=== PATIENT | male | born 1985 | race Caucasian/White ===

== ENCOUNTER 2016-10-06 09:01 | Outpatient (CLI) | payer BC ==
[2016-10-06 12:56] LABS: BASOPHILS % (AUTO) 0.6 %; EOSINOPHILS # (AUTO) 0.2 10^3/uL (0.0-0.7); EOSINOPHILS % (AUTO) 3.2 %; HGB - HEMOGLOBIN 15.8 g/dL (14.0-18.0); LYMPHOCYTES % (AUTO) 22.1 %; MEAN CORPUSCULAR HEMOGLOBIN 27.9 pg (27.0-31.0); MEAN CORPUSCULAR HGB CONC 33.5 g/dL (32.0-36.0); MEAN CORPUSCULAR VOLUME 83.1 fL (80.0-94.0); MEAN PLATELET VOLUME 8.7 fL (7.4-11.4); MONOCYTES # (AUTO) 0.3 10^3/uL (0.0-1.0); NEUTROPHILS # (AUTO) 3.2 10^3/uL (1.5-6.6); NEUTROPHILS % (AUTO) 68.1 %; NUCLEATED RED BLOOD CELLS AUTO 0.2 /100WBC; RED BLOOD COUNT 5.65 10^6/uL (4.70-6.10); RED CELL DISTRIBUTION WIDTH 13.3 % (12.0-15.0); UNCORRECTED WHITE BLOOD COUNT 4.7 x10^3/uL; WHITE BLOOD COUNT 4.7 x10^3/uL (4.8-10.8)
[2016-10-06 13:42] LABS: ALBUMIN/GLOBULIN RATIO 1.6 (1.0-2.2); BILIRUBIN,TOTAL 1.1 mg/dL (0.2-1.0); BUN - BLOOD UREA NITROGEN 17 mg/dL (6-20); CALCIUM 9.1 mg/dL (8.5-10.3); CARBON DIOXIDE - CO2 28 mmol/L (21-32); CHLORIDE 101 mmol/L (101-111); CHOL/HDL RATIO 7.7 (<5.0); CHOLESTEROL 254 mg/dL; CREATININE 0.8 mg/dL (0.6-1.2); GFR - MDRD 112 (>89); GLUCOSE 146 mg/dL (70-100); HDL CHOLESTEROL 33 mg/dL; LDL/HDL RATIO 4.8 (<3.6); POTASSIUM 4.4 mmol/L (3.5-5.0); SODIUM 136 mmol/L (135-145); TOTAL PROTEIN 7.1 g/dL (6.7-8.2); TRIGLYCERIDES 319 mg/dL; VLDL CHOLESTEROL 64 mg/dL
== END 2016-10-06 09:02 | disposition home or self-care (01) ==
LOC: LAB.WCP 09:01
PROVIDERS: ATTEND Physician Assistant Medical
DX: Z00.00 Encounter for general adult medical examination without abnormal findings (principal)
CPT/HCPCS: 36415; 80053; 80061; 84443; 85025

== ENCOUNTER 2017-03-17 17:43 | Emergency (ER) | payer OTHER, BC ==
[2017-03-17 17:50] VITALS: BP 138/86
[2017-03-17] MEDS ORDERED: LIDOCAINE 2% 10 ML MDV SUBQ STA (17:58)
--- NOTE | 2017-03-17 18:17 | ED Physician Documentation ---
PD HPI UPPER EXT INJURY - Stated complaint Stated Complaint: LT FINGER LAC - Chief complaint Chief Complaint: Laceration - History obtained from History obtained from: Patient - History of Present Illness Location: Left, Finger (index) Type of injury: Laceration Where injury occurred: Work ([employer]) Timing - onset: How many hours ago (1) Timing - duration: Hours (1) Timing - details: Abrupt onset Pain level max: 5 Pain level now: 2 Improved by: Rest Worsened by: Moving, Palpating Associated symptoms: No: Weakness, Numbness, Tingling, Swelling Contributing factors: No: Anticoagulated Similar symptoms before: Has not had sx before Recently seen: Not recently seen - Additonal information Additional information: L index finger laceration at work Review of Systems Neurologic: denies: Focal weakness, Numbness PD PAST MEDICAL HISTORY - Past Medical History Past Medical History: No - Past Surgical History Past Surgical History: No - Social History Does the pt smoke?: No Smoking Status: Never smoker Does the pt drink ETOH?: No Does the pt have substance abuse?: No - Immunizations Immunizations are current?: Yes - POLST Patient has POLST: No PD ED PE NORMAL - Vitals Vital signs reviewed: Yes - General General: Alert and oriented X 3, No acute distress - Derm Derm: Warm and dry - Extremities Extremities: Other (L index finger - 2 cm, linear, subcutaneous laceration. NVI. ) Results - Vitals Vitals: Vital Signs - 24 hr 03/17/17 17:48 Temperature 37.7 C H Heart Rate 77 Respiratory 17 Rate Blood Pressure 138/86 H O2 Saturation 97 Oxygen O2 Source Room air Procedures - Laceration (location) L index finger Length in cm: 2 Wound type: Linear, Into subcut fat, Clean Neurovascular status: Sensory intact, Motor intact, Vascular intact Tendon involvement: Tendon intact. No: Tendon Injury Anesthesia: Lidocaine 2% Wound Preparation: Chlorhexadine, Irrigated copiously NS (500ml) Skin layer closure: Nylon, Size #-0 - enter number (4), Sutures - enter # (4) Other: Patient tolerated well, No complications, Neurovascular intact, Dressing applied (finger splint), Tetanus UTD Complexity: Simple PD MEDICAL DECISION MAKING - ED course Complexity details: considered differential, d/w patient ED course: Laceration repaired. Tolerated well. Neurovascularly intact. No tendon injury. No foreign body. Warnings of infection and instructions on wound care given at bedside. Also counseled on how to minimize scarring. Patient counseled regarding signs and symptoms for which I believe and urgent re- evaluation would be necessary. Patient with good understanding of and agreement to plan and is comfortable going home at this time This document was made in part using voice recognition software. While efforts are made to proofread this document, sound alike and grammatical errors may occur. Departure - Departure Disposition: 01 Home, Self Care Clinical Impression: Finger laceration Qualifiers: Encounter type: initial encounter Finger: index finger Damage to nail status: without damage Foreign body presence: without foreign body Laterality: left Qualified Code(s): S61.211A - Laceration without foreign body of left index finger without damage to nail, initial encounter Condition: Good Instructions: ED Laceration Hand Follow-Up: Irene Brown PA-C [Primary Care Provider] - (in 10-14 days for suture removal) Comments: Wear the finger splint for the next 2-3 days. The sutures should be removed in 10-14 days with your doctor. Keep the area clean. Return if you notice redness swelling or drainage from the wound. Discharge Date/Time: 03/17/17 18:58
== END 2017-03-17 18:58 | disposition home or self-care (01) ==
LOC: ED 17:43
DX: S61.211A Laceration without foreign body of left index finger without damage to nail, initial encounter (principal); W26.0XXA Contact with knife, initial encounter; Y99.0 Civilian activity done for income or pay
CPT/HCPCS: 12001; 99282; 99283

== ENCOUNTER 2017-04-26 14:44 | Outpatient (CLI) | payer BC ==
--- NOTE | 2017-04-27 22:07 | MRI Report ---
EXAM: MRI LUMBAR SPINE WITHOUT CONTRAST EXAM DATE: 04/26/2017 03:25 PM. CLINICAL HISTORY: Lumbar disk disorder. COMPARISON: MRI of the lumbar spine without contrast 11/17/2008, MRI lumbar spine with contrast 11/25. TECHNIQUE: Multiplanar, multisequence T1-weighted and fluid-sensitive sequences of the lumbar spine f rom T12 to S1 without contrast. Other: None. FINDINGS: Spinal Cord: The conus terminates at L1-L2. The conus medullaris and cauda equina are unremarkable. Alignment: There is a normal lumbar spine lordosis. There is minimal, 2 mm, retrolisthesis of L3 on L 4. 5-6 mm retrolisthesis of L5 on S1. Bone Marrow: Five [id number] lumbar vertebral bodies are assumed. No gross fractures or bone les ions. No bone marrow edema. Disk Levels/Facets: T12-L1: Unremarkable. L1-L2: Unremarkable. L2-L3: Unremarkable. L3-L4: Retrolisthesis. Disk desiccation. No significant canal or foraminal narrowing. Previously seen right inferior subarticular extrusion no longer demonstrated. L4-L5: Posterior central 2 mm protrusion without significant canal or foraminal narrowing. No signifi cant change. L5-S1: Retrolisthesis. Progressive moderate disk height loss. No significant canal or subarticular na rrowing. No significant foraminal narrowing. Musculature: Normal. No edema or fatty atrophy. Other: The partially visualized retroperitoneum is unremarkable. IMPRESSION: 1. At L5-S1, stable retrolisthesis. Progressive moderate disk height loss. No significant spinal riley l or foraminal narrowing. No focal protrusion or extrusion. 2. At L4-L5, central 2 mm protrusion without significant canal or foraminal narrowing. No significant change. 3. At L3-L4, stable retrolisthesis. No significant canal or foraminal narrowing. Previously demonstra allison right inferior subarticular disk extrusion no longer demonstrated. Comment: The following findings are so common in adults without low back pain that while we report th eir presence, they must be interpreted with caution and in the context of the clinical situation. (Re thomas Harper et al, Spine 2001) Prevalence of findings in patients without low back pain: Disk degeneration (any evidence): 92% Disk desiccation/T2 signal loss: 83% Disk height loss: 56% Disk bulge: 64% Disk protrusion: 32% Annular tear/high intensity zone: 38% [facility] Referring Provider Line: [phone] SITE ID: [id number]
== END 2017-04-26 14:45 | disposition home or self-care (01) ==
LOC: DI 14:44
PROVIDERS: ATTEND Physician Assistant Medical
DX: M51.26 Other intervertebral disc displacement, lumbar region (principal); M51.36 Other intervertebral disc degeneration, lumbar region; M43.16 Spondylolisthesis, lumbar region; M43.17 Spondylolisthesis, lumbosacral region; M51.37 Other intervertebral disc degeneration, lumbosacral region
CPT/HCPCS: 72148

== ENCOUNTER 2017-07-31 08:00 | Outpatient (CLI) | payer BC ==
[2017-07-31 19:06] LABS: BASOPHILS % (AUTO) 0.6 %; EOSINOPHILS # (AUTO) 0.1 10^3/uL (0.0-0.7); EOSINOPHILS % (AUTO) 2.2 %; LYMPHOCYTES # (AUTO) 0.8 10^3/uL (1.5-3.5); LYMPHOCYTES % (AUTO) 12.2 %; MEAN CORPUSCULAR HEMOGLOBIN 28.5 pg (27.0-31.0); MEAN CORPUSCULAR HGB CONC 35.3 g/dL (32.0-36.0); MEAN CORPUSCULAR VOLUME 80.7 fL (80.0-94.0); MEAN PLATELET VOLUME 9.8 fL (7.4-11.4); MONOCYTES # (AUTO) 0.4 10^3/uL (0.0-1.0); MONOCYTES % (AUTO) 6.7 %; NEUTROPHILS # (AUTO) 5.1 10^3/uL (1.5-6.6); NEUTROPHILS % (AUTO) 78.3 %; RED BLOOD COUNT 5.27 10^6/uL (4.70-6.10); WHITE BLOOD COUNT 6.6 x10^3/uL (4.8-10.8)
[2017-07-31 19:49] LABS: ALBUMIN 4.4 g/dL (3.2-5.5); ALBUMIN/GLOBULIN RATIO 1.7 (1.0-2.2); BILIRUBIN,TOTAL 0.5 mg/dL (0.2-1.0); CALCIUM 8.9 mg/dL (8.5-10.3); CREATININE 0.9 mg/dL (0.6-1.2)
[2017-07-31 20:13] LABS: PLATELET ESTIMATE, MANUAL DECREASED (<130,000) (NORMAL); PLT - PLATELET COUNT 3 10^3/uL (130-450)
[2017-08-02 14:11] LABS: COMPLEMENT COMPONENT C3C 151 mg/dL (82-185); COMPLEMENT COMPONENT C4C 35 mg/dL (15-53)
[2017-08-02 14:13] LABS: ANA SCREEN NEGATIVE (NEGATIVE)
[2017-08-03 07:02] LABS: GLOM BASEMENT MEMBRANE AB IGG <1.0 AI (<1.0)
[2017-08-03 15:57] LABS: ANCA SCREEN NEGATIVE (NEGATIVE)
[2017-08-05 07:57] LABS: ANTI-STREPTOLYSIN O <50 IU/mL (<200)
== END 2017-07-31 08:01 | disposition home or self-care (01) ==
LOC: LAB.WCP 08:00
PROVIDERS: ATTEND Family Medicine
DX: R31.9 Hematuria, unspecified (principal); I77.6 Arteritis, unspecified
CPT/HCPCS: 36415; 80053; 83520; 85025; 86021; 86038; 86060; 86160

== ENCOUNTER 2017-07-31 20:57 | Inpatient (IN) | payer BC ==
--- NOTE | 2017-07-31 21:20 | ED Physician Documentation ---
History of Present Illness - Stated complaint Stated Complaint: MALE /BK PX - Chief complaint Chief Complaint: General - History obtained from History obtained from: Patient - Additonal information Additional information: 32-year-old gentleman with benign past medical history went to the dentist 3 days ago because his gums were bleeding. They bled worse during the cleaning and he was put on an antibiotic, Keflex. The next day he was no better and was switched to Augmentin. They noted easy bleeding and bruising a lot of cheek he has so today was sent for blood work which was notable for a platelet count of 3000 and he was referred to the emergency department for further evaluation and treatment. He is also had hematuria grossly but no clots. Review of Systems Ten Systems: 10 systems reviewed and negative Constitutional: denies: Fever, Chills, Fatigue Nose: denies: Rhinorrhea / runny nose, Congestion Throat: denies: Sore throat Cardiac: denies: Chest pain / pressure, Palpitations Respiratory: denies: Dyspnea, Cough GI: denies: Abdominal Pain, Nausea, Vomiting : reports: Hematuria. denies: Dysuria, Frequency, Hesitancy PD PAST MEDICAL HISTORY - Past Surgical History Past Surgical History: No - Allergies Allergies/Adverse Reactions: Allergies Allergy/AdvReac Type Severity Reaction Status Date / Time cephalexin AdvReac Rash Verified 07/31/17 21:10 - Social History Does the pt smoke?: No Smoking Status: Never smoker Does the pt drink ETOH?: No Does the pt have substance abuse?: No - Immunizations Immunizations are current?: Yes - POLST Patient has POLST: No PD ED PE NORMAL - Vitals Vital signs reviewed: Yes - General General: Alert and oriented X 3, No acute distress - HEENT HEENT: PERRL, EOMI - Neck Neck: Supple, no meningeal sign, No bony TTP - Cardiac Cardiac: RRR, No murmur - Respiratory Respiratory: No respiratory distress, Clear bilaterally - Abdomen Abdomen: Normal bowel sounds, Soft, Non tender - Derm Derm: Other (He is with diffuse petechia throughout especially the lower extremities and multiple bruises, the left thigh, chest wall, right arm.) - Extremities Extremities: No edema, No calf tenderness / cord - Neuro Neuro: Alert and oriented X 3, Normal speech - Psych Psych: Normal mood, Normal affect Results - Vitals Vitals: Vital Signs - 24 hr 07/31/17 21:07 Temperature 36.4 C L Heart Rate 84 Respiratory 17 Rate Blood Pressure 150/90 H O2 Saturation 100 Oxygen O2 Source Room air - Labs Labs: Laboratory Tests 07/31/17 07/31/17 21:15 21:15 WBC 7.2 RBC 5.23 Hgb 15.4 Hct 42.1 MCV 80.6 MCH 29.4 MCHC 36.5 H RDW 13.1 Plt Count 7 L* MPV 9.0 Neut # (Auto) 5.3 Lymph # (Auto) 1.2 L [place] # (Auto) 0.5 Eos # (Auto) 0.2 Baso # (Auto) 0.1 Absolute Nucleated RBC 0.00 Nucleated RBC % 0.0 Urine Color RED/BLOODY Urine Clarity BLOODY Urine pH 5.0 Ur Specific [place] 1.025 Urine Protein 100 H Urine Glucose (UA) NEGATIVE Urine Ketones TRACE Urine Occult Blood LARGE H Urine Nitrite POSITIVE H Urine Bilirubin NEGATIVE Urine Urobilinogen 1 (NORMAL) Ur Leukocyte Esterase TRACE H Urine RBC TNTC H Urine WBC >25 H Ur Squamous Epith Cells NONE SEEN Urine Bacteria Few Urine Yeast PRESENT Ur Microscopic Review INDICATED Urine Culture Comments INDICATED PD MEDICAL DECISION MAKING - ED course ED course: He probably has ITP, [facility] was paged for consultation and likely transfer at 9:20 PM. [facility] was full, this was followed by a call to [facility]. They initially had me speak with the radiation oncologist but around 10:20 I was put in touch with their medical oncologist, Dr. Barksdale and we went over the case and he felt like he could probably stay here understanding that this [facility] a [facility] without easy access to platelets or IVIG. He felt the best treatment for him initially would be dexamethasone, 40 mg a day for the 4 days and we should call them back if he has not had an improved platelet count in about 3 days. I spoke with Dr. Baugh by phone for admission at 10:30 PM. Departure - Departure Disposition: 66 [facility] DC/[facility] Clinical Impression: Acute ITP Condition: Serious
[2017-07-31 21:30] LABS: BASOPHILS % (AUTO) 0.8 %; EOSINOPHILS % (AUTO) 2.3 %; HGB - HEMOGLOBIN 15.4 g/dL (14.0-18.0); LYMPHOCYTES % (AUTO) 16.3 %; MEAN CORPUSCULAR HEMOGLOBIN 29.4 pg (27.0-31.0); MEAN CORPUSCULAR HGB CONC 36.5 g/dL (32.0-36.0); MEAN CORPUSCULAR VOLUME 80.6 fL (80.0-94.0); MONOCYTES % (AUTO) 7.3 %; NEUTROPHILS % (AUTO) 73.3 %; RED BLOOD COUNT 5.23 10^6/uL (4.70-6.10); RED CELL DISTRIBUTION WIDTH 13.1 % (12.0-15.0)
[2017-07-31 21:33] LABS: BILIRUBIN,URINE NEGATIVE (NEGATIVE); GLUCOSE, URINE (UA) NEGATIVE (NEGATIVE); KETONES,URINE (UA) TRACE mg/dL (NEGATIVE); LEUKOCYTE ESTERASE, URINE TRACE (NEGATIVE); NITRITE,URINE POSITIVE (NEGATIVE); OCCULT BLOOD,URINE LARGE (NEGATIVE); PROTEIN,URINE 100 mg/dL (NEGATIVE); UROBILINOGEN,URINE 1 (NORMAL) E.U./dL (NORMAL)
[2017-07-31 21:35] LABS: CLARITY,URINE BLOODY (CLEAR)
[2017-07-31 21:39] LABS: PLT - PLATELET COUNT 7 10^3/uL (130-450)
[2017-07-31 21:45] LABS: BACTERIA,URINE Few /HPF (None Seen); RBC,URINE TNTC /HPF (0-5); SQUAMOUS EPITHELIAL CELL,UR NONE SEEN (<= Few); YEAST,URINE PRESENT
[2017-07-31] MEDS ORDERED: DEXAMETHASONE 10 MG/ML VIAL IVP STA (22:29)
--- NOTE | 2017-07-31 22:35 | HISTORY & PHYSICAL EXAMINATION ---
Chief Complaint - Chief Complaint Chief Complaint: Blood in urine History of Present Illness - Admitted From Admitted From:: Emergency Department - History Obtained From Records Reviewed: Yes History obtained from: Patient Exam Limitations: None - History of Present Illness HPI Comment/Other: Patient is a 32-year-old gentleman with a past medical history significant for hypertension, GERD and chronic back pain who presents to the emergency department with a chief complaint of hematuria. The patient states that he was in his normal state of health until just 4 days ago when he states that he was brushing his teeth before bed and noticed that he had some bleeding from his gums. He states that he went to sleep and then when he woke up the next morning he had dried blood on his teeth. He states that when he brushed his teeth again that morning he began bleeding a significant amount from his gums and the bleeding continued throughout the day. The patient states that due to this bleeding he decided to go see his dentist who prescribed him an antibiotic and some mouthwash. He states later in the day the dentist also cleaned his teeth. He states that after the teeth cleaning he had even more bleeding from his gums which was slow but continued throughout the next few days. He states that the following morning he began noticing small red dots over his legs arms and entire body. He went to see his primary care physician at that time and was thought to have had a reaction to his antibiotic Keflex therefore his antibiotic was changed. The patient states that the following evening he began to notice that he was having right flank pain. He states he did not make much of it because he has chronic back pain and thought it was similar pain to what he has had before. The patient states that the following morning which was this morning when he woke up he had hematuria. He states that initially his urine was just dark but then became bright red blood. At this point he became concerned and he went in to see his primary care physician once again. The patient's primary care physician thought the patient may be having a kidney stone and ordered a CT scan and did a urine analysis. Along with this she are also ordered some routine lab work. He was prescribed prednisone by his PCP and sent home. Of note the patient states that he bumped his left upper thigh against a door earlier in the week and noticed a large bruise over his thigh which is abnormal for him as he has had small bumps like that before but never bruised so much. He also states that this morning he noticed a bruise on his abdomen which was also unusual. The patient states that after seeing his primary care physician he went to work and later in the evening he got a phone call saying that he needed to go to the emergency department [facility]. It appears from the PCPs notes that the patient had a platelet count of 3 and this is why he was told to come to the emergency department. The patient denies any recent illnesses, headache, blurred vision, runny nose, sore throat, nasal congestion, difficulty swallowing, fever, chills, chest pain , orthopnea, PND, increased lower extremity swelling, cough, shortness of air, abdominal pain, nausea, vomiting, diarrhea, constipation, dysuria, increased urinary frequency, joint pain, joint swelling, muscle aches, back pain, neck stiffness, recent unintentional weight loss, generalized weakness, lightheadedness, hair loss, changes in his appetite, night sweats or any focal neurologic deficits. On presentation to the emergency department the patient was afebrile and slightly hypertensive but otherwise appeared to be in no acute distress and stable. The patient did have visible petechiae over his entire body. The patient was not having any active bleeding from his gums or his mouth. The patient underwent routine lab work which revealed a platelet count of 7 with no other abnormalities on the CBC other than a mild lymphopenia. The patient's blood chemistry revealed a mild hyponatremia and mildly elevated LFTs with AST of 51 and ALT of 71. The patient's urinalysis revealed large occult blood with positive nitrite, trace leukocyte esterase and large RBCs and greater than 25 WBCs with few bacteria. Given the severely low platelets and ongoing bleeding the emergency room physician was very concerned for possible ITP and called the technical supervisor software quality automation engineer at [facility] in [place]. He spoke with oncologist Dr. Barksdale and went over the case. Dr. Barksdale felt that the patient could remain at a critical [facility] as there was no need for access to platelets or IVIG at this time. He felt the best treatment for him initially would be dexamethasone 40 mg daily for 4 days and that he should be called back if the platelets did not improve in the next 3 days. The patient was admitted to the medical [facility] after receiving a dose of IV dexamethasone in the emergency department. History - Past Medical History Cardiovascular: reports: Hypertension Respiratory: reports: None Neuro: reports: None Endocrine/Autoimmune: reports: None GI: reports: GERD MACHINE BOOKKEEPER: reports: None : reports: None HEENT: reports: None Psych: reports: None Musculoskeletal: reports: Chronic back pain Derm: reports: None MRSA Hx?: No - Family & Social History Family History: Mother: Cancer (Ovarian Ca), Father: Hyperlipidemia, Hypertension Living arrangement: At home Living Situation: With spouse/s.o. Social History Notes: The patient lives in [place] with his and kids. The patient has 1 biological and 4 stepchildren. He works for an [employer]. He states that he did smoke cigarettes for about 2 years but quit when he was around 19 years old. He used chewing tobacco for about 10 years but quit several years ago. He states he rarely drinks alcohol. He denies any illicit drug use. - POLST Patient has POLST: No POLST Status: Full Code Meds/Allgy - Home Medications Home Medications: Ambulatory Orders Medication Instructions Recorded Confirmed Diclofenac Sodium Dr [Voltaren] 75 mg PO DAILY 08/01/17 08/01/17 Lisinopril [Lisinopril] 10 mg PO DAILY 08/01/17 08/01/17 Pregabalin [Lyrica] 50 mg PO BID 08/01/17 08/01/17 oxyCODONE/ACET 5/325 [Percocet 5 1 each PO Q4-6H PRN 08/01/17 08/01/17 mg/325 mg] predniSONE [Prednisone] 1 mg PO DAILY 08/01/17 08/01/17 - Allergies Allergies/Adverse Reactions: Allergies Allergy/AdvReac Type Severity Reaction Status Date / Time cephalexin AdvReac Rash Verified 07/31/17 21:10 Review of Systems - Other Findings Other Findings: A comprehensive review of systems was performed the pertinent positives and negatives are stated above in the HPI and the remainder of the review of systems is negative. Exam - Vital Signs Vital Signs: Vital Signs x48h Temp Pulse Resp BP Pulse Ox 07/31/17 21:07 36.4 C L 84 17 150/90 H 100 - Physical Exam General Appearance: positive: No acute distress, Alert, Other (Slightly overweight) Eyes Bilateral: positive: Normal inspection, PERRL, EOMI, No lid inflammation, Conjunctivae nml, No scleral icterus ENT: positive: Dry mucous membranes, Other (Patient has petechiae in his mouth and has some small purpura on the inside of his bottom lip as well as small areas of erythema on his gums and in the back of his mouth. There is no active bleeding.) Neck: positive: Nml inspection, Thyroid nml, No JVD, Trachea midline. negative : Lymphadenopathy (R), Lymphadenopathy (L), Carotid bruit, Tracheal deviation Respiratory: positive: Chest non-tender, No respiratory distress, Breath sounds nml. negative: Wheezes, Rales, Rhonchi Cardiovascular: positive: Regular rate & rhythm, No murmur, No gallop Peripheral Pulses: positive: 2+ Abdomen: positive: Non-tender, No organomegaly, Nml bowel sounds, No distention , Other (Patient has bruising on the left upper quadrant of his abdomen he is not sure what this is from). negative: Guarding, Rebound, Hepatomegaly Back: positive: Nml inspection. negative: CVA tenderness (R), CVA tenderness (L ) Skin: positive: Dry, Other (Patient has numerous small petechiae over his legs, arms and on his trunk. Patient has bruising in the left upper quadrant of his abdomen and bruising on his left upper thigh. Patient also has petechiae in his mouth.). negative: Cyanosis, Pallor Extremities: positive: Non-tender, Full ROM, Nml appearance, No pedal edema Neurologic/Psychiatric: positive: Oriented x3, CN's nml (2-12), Motor nml, Sensation nml, Mood/affect nml Conclusion/Plan - Problem List (1) Thrombocytopenia Conclusion/Plan: The patient presents with severe thrombocytopenia with platelet count of 3 and repeat platelet count of 7. The remainder of the patient's CBC is normal aside from mild lymphopenia. The morphology of the platelets appears to be normal. The patient has had no recent viral syndrome. The patient does have mildly elevated LFTs on blood chemistry. Patient has been having bleeding gums for 3 days and now presents with hematuria. Patient has no bloody stools, black stools, hematemesis or hemoptysis. Patient has no focal neurologic deficits. He does have bruising on his left thigh and on his abdominal wall. The patient also has numerous petechiae over his arms, legs, trunk and in his mouth. The patient is thought likely to have ITP. The emergency room physician spoke with hematology on-call in [place] for [facility]. Dr. Barksdale spoke with the emergency room physician and felt that this was likely to be ITP and that the patient could be managed at a critical Access Hospital despite the limited access to platelets and IVIG. The technical supervisor felt there was no need to transfuse platelets at this time unless the patient started having more catastrophic bleeding. He advised that we place the patient on IV dexamethasone 40 mg daily and monitor his platelet count. He asked that the patient be hospitalized for at least 4 days and if platelet count is not improving after 3 days that we need to reconsult him and patient will likely need to be transferred. Plan: Treat patient for likely ITP with IV dexamethasone 40 mg daily Monitor platelet count daily Monitor for any further bleeding Order viral workup with hepatitis panel and HIV given mildly elevated LFTs and lymphopenia Order DARRYN to screen for possible other autoimmune disorders Peripheral blood smear Check TSH (2) Hematuria Conclusion/Plan: Patient has hematuria likely secondary to his thrombocytopenia causing bleeding. Patient's urine analysis does show some WBCs and a few bacteria along with nitrates and leukocyte esterase. Patient is not having any burning with urination or fevers or leukocytosis. These elevations are likely just secondary to the volume of blood loss and at this point we will not be treating the patient for a urinary tract infection. Rather we will treat his ITP and hope that his hematuria will improve with improving platelet counts. The patient was scheduled for CT scan of his kidneys for ruling out kidney stones tomorrow this will need to be canceled. Qualifiers: Hematuria type: gross Qualified Code(s): R31.0 - Gross hematuria (3) Transaminitis Conclusion/Plan: Patient has a mild transaminitis with ALT greater than AST. The patient's bilirubin and alk phos are within normal limits. Patient also has a mild lymphopenia. These findings are concerning in the presence of thrombocytopenia for possible viral infection causing this thrombocytopenia or ITP. Plan: Monitor LFTs Check hepatitis panel and HIV antibody. (4) Hyponatremia Conclusion/Plan: Patient has a mild hyponatremia with sodium of 132. Patient does appear to be mildly dehydrated and will be given IV fluids while he is hospitalized. We will recheck his sodium daily. - Lab Results Lab results reviewed: Yes Fish Bones: 07/31/17 21:15 07/31/17 21:15 Other Lab Results: Laboratory Results Specimen Type Peripheral blood smear 07/31/17 21:15 WBC 7.2 x10^3/uL (4.8-10.8) 07/31/17 21:15 RBC 5.23 10^6/uL (4.70-6.10) 07/31/17 21:15 Hgb 15.4 g/dL (14.0-18.0) 07/31/17 21:15 Hct 42.1 % (42.0-52.0) 07/31/17 21:15 MCV 80.6 fL (80.0-94.0) 07/31/17 21:15 MCH 29.4 pg (27.0-31.0) 07/31/17 21:15 MCHC 36.5 g/dL (32.0-36.0) H 07/31/17 21:15 RDW 13.1 % (12.0-15.0) 07/31/17 21:15 Plt Count 7 10^3/uL (130-450) L* 07/31/17 21:15 MPV 9.0 fL (7.4-11.4) 07/31/17 21:15 Neut # (Auto) HAM ROLLING MACHINE OPERATOR 07/31/17 21:15 Lymph # (Auto) HAM ROLLING MACHINE OPERATOR 07/31/17 21:15 [place] # (Auto) HAM ROLLING MACHINE OPERATOR 07/31/17 21:15 Eos # (Auto) HAM ROLLING MACHINE OPERATOR 07/31/17 21:15 Baso # (Auto) HAM ROLLING MACHINE OPERATOR 07/31/17 21:15 Absolute Nucleated RBC HAM ROLLING MACHINE OPERATOR 07/31/17 21:15 Total Counted 100 07/31/17 21:15 Band Neuts % (Manual) 1 % (0-10) 07/31/17 21:15 Abnorm Lymph % (Manual) 0 % 07/31/17 21:15 Nucleated RBC % HAM ROLLING MACHINE OPERATOR 07/31/17 21:15 Neutrophils # (Manual) 6.0 10^3/uL (1.5-6.6) 07/31/17 21:15 Lymphocytes # (Manual) 0.8 10^3/uL (1.5-3.5) L 07/31/17 21:15 Monocytes # (Manual) 0.4 10^3/uL (0.0-1.0) 07/31/17 21:15 Eosinophils # (Manual) 0.1 10^3/uL (0-0.7) 07/31/17 21:15 Basophils # (Manual) 0.0 10^3/uL (0-0.1) 07/31/17 21:15 Platelet Estimate DECREASED (<130,000) (NORMAL) 07/31/17 21:15 Platelet Morphology NORMAL APPEARANCE (NORMAL) 07/31/17 21:15 RBC Morph Micro Appear NORMAL APPEARANCE (NORMAL) 07/31/17 21:15 Sodium 132 mmol/L (135-145) L 07/31/17 21:15 Potassium 3.9 mmol/L (3.5-5.0) 07/31/17 21:15 Chloride 97 mmol/L (101-111) L 07/31/17 21:15 Carbon Dioxide 29 mmol/L (21-32) 07/31/17 21:15 Anion Gap 6.0 (6-13) 07/31/17 21:15 BUN 21 mg/dL (6-20) H 07/31/17 21:15 Creatinine 0.9 mg/dL (0.6-1.2) 07/31/17 21:15 Estimated GFR (MDRD) 97 (>89) 07/31/17 21:15 Glucose 92 mg/dL (70-100) 07/31/17 21:15 Calcium 9.2 mg/dL (8.5-10.3) 07/31/17 21:15 Total Bilirubin 0.6 mg/dL (0.2-1.0) 07/31/17 21:15 AST 51 IU/L (10-42) H 07/31/17 21:15 ALT 71 IU/L (10-60) H 07/31/17 21:15 Alkaline Phosphatase 71 IU/L (42-121) 07/31/17 21:15 Total Protein 7.3 g/dL (6.7-8.2) 07/31/17 21:15 Albumin 4.5 g/dL (3.2-5.5) 07/31/17 21:15 Globulin 2.8 g/dL (2.1-4.2) 07/31/17 21:15 Albumin/Globulin Ratio 1.6 (1.0-2.2) 07/31/17 21:15 Lipase 37 U/L (22-51) 07/31/17 21:15 Urine Color RED/BLOODY 07/31/17 21:15 Urine Clarity BLOODY (CLEAR) 07/31/17 21:15 Urine pH 5.0 PH (5.0-7.5) 07/31/17 21:15 Ur Specific [place] 1.025 (1.002-1.030) 07/31/17 21:15 Urine Protein 100 mg/dL (NEGATIVE) H 07/31/17 21:15 Urine Glucose (UA) NEGATIVE mg/dL (NEGATIVE) 07/31/17 21:15 Urine Ketones TRACE mg/dL (NEGATIVE) 07/31/17 21:15 Urine Occult Blood LARGE (NEGATIVE) H 07/31/17 21:15 Urine Nitrite POSITIVE (NEGATIVE) H 07/31/17 21:15 Urine Bilirubin NEGATIVE (NEGATIVE) 07/31/17 21:15 Urine Urobilinogen 1 (NORMAL) E.U./dL (NORMAL) 07/31/17 21:15 Ur Leukocyte Esterase TRACE (NEGATIVE) H 07/31/17 21:15 Urine RBC TNTC /HPF (0-5) H 07/31/17 21:15 Urine WBC >25 /HPF (0-3) H 07/31/17 21:15 Ur Squamous Epith Cells NONE SEEN (<= Few) 07/31/17 21:15 Urine Bacteria Few /HPF (None Seen) 07/31/17 21:15 Urine Yeast PRESENT 07/31/17 21:15 Ur Microscopic Review INDICATED 07/31/17 21:15 Urine Culture Comments INDICATED 07/31/17 21:15 Slides for Path Review PATH SLIDE REVIEW 07/31/17 21:15 Blood Type B POSITIVE 07/31/17 22:20 Antibody Screen NEGATIVE 07/31/17 22:20 Core Measures - Anticipated LOS I expect patient to be DC'd or transferred within 96 hours.: Yes - DVT/VTE - Prophylaxis VTE/DVT Device ordered at admit?: Yes
[2017-07-31] MEDS ORDERED: ONDANSETRON 4 MG/2 ML VIAL IVP PRN (22:36)
[2017-07-31] MEDS ORDERED: PROCHLORPERAZINE 10 MG/2 ML VIAL IVP PRN (22:36)
[2017-07-31] MEDS ORDERED: oxyCODONE 5 MG TABLET PO PRN ×2 (22:36)
[2017-07-31] MEDS ORDERED: ACETAMINOPHEN 325 MG TABLET PO PRN (22:36)
[2017-07-31] MEDS ORDERED: ZOLPIDEM 5 MG TABLET PO PRN (22:36)
[2017-07-31 22:58] LABS: ALBUMIN 4.5 g/dL (3.2-5.5); ALBUMIN/GLOBULIN RATIO 1.6 (1.0-2.2); CALCIUM 9.2 mg/dL (8.5-10.3); CREATININE 0.9 mg/dL (0.6-1.2); TOTAL PROTEIN 7.3 g/dL (6.7-8.2)
[2017-07-31] MEDS ORDERED: SODIUM CHLORIDE 0.9% 1,000 ML IV SCH (23:00)
[2017-07-31 23:01] LABS: BILIRUBIN,TOTAL 0.6 mg/dL (0.2-1.0)
[2017-07-31 23:10] LABS: ABNORMAL LYMPHS % (MANUAL) 0 %
[2017-07-31 23:13] LABS: BAND NEUTROPHILS % (MANUAL) 1 %; EOSINOPHILS # (MANUAL) 0.1 10^3/uL (0-0.7); LYMPHOCYTES # (MANUAL) 0.8 10^3/uL (1.5-3.5); LYMPHOCYTES % (MANUAL) 11 %; MONOCYTES # (MANUAL) 0.4 10^3/uL (0.0-1.0); NEUTROPHILS % (MANUAL) 82 %
[2017-07-31 23:16] LABS: PLATELET ESTIMATE, MANUAL DECREASED (<130,000) (NORMAL); PLATELET MORPHOLOGY NORMAL APPEARANCE (NORMAL); RBC MORPHOLOGY (MULTIPLE) NORMAL APPEARANCE (NORMAL)
[2017-07-31 23:18] LABS: WHITE BLOOD COUNT 7.2 x10^3/uL (4.8-10.8)
[2017-08-01] MEDS: SODIUM CHLORIDE FLUSH 0.9% 10 ML SYRINGE IVP PRN (00:08)
[2017-08-01] MEDS: SODIUM CHLORIDE FLUSH 0.9% 10 ML SYRINGE IVP SCH ×3 (01:00→16:18)
[2017-08-01] MEDS ORDERED: SODIUM CHLORIDE 0.9% 1,000 ML IV SCH (02:00)
[2017-08-01 06:06] LABS: BASOPHILS % (AUTO) 0.1 %; EOSINOPHILS % (AUTO) 0.1 %; HGB - HEMOGLOBIN 14.8 g/dL (14.0-18.0); LYMPHOCYTES # (AUTO) 0.5 10^3/uL (1.5-3.5); LYMPHOCYTES % (AUTO) 7.6 %; MEAN CORPUSCULAR HEMOGLOBIN 27.7 pg (27.0-31.0); MEAN CORPUSCULAR HGB CONC 34.4 g/dL (32.0-36.0); MEAN CORPUSCULAR VOLUME 80.6 fL (80.0-94.0); MEAN PLATELET VOLUME 12.6 fL (7.4-11.4); MONOCYTES # (AUTO) 0.1 10^3/uL (0.0-1.0); MONOCYTES % (AUTO) 1.4 %; NEUTROPHILS # (AUTO) 6.1 10^3/uL (1.5-6.6); NEUTROPHILS % (AUTO) 90.8 %; RED BLOOD COUNT 5.34 10^6/uL (4.70-6.10); RED CELL DISTRIBUTION WIDTH 13.1 % (12.0-15.0); WHITE BLOOD COUNT 6.7 x10^3/uL (4.8-10.8)
[2017-08-01 06:11] LABS: PLT - PLATELET COUNT 3 10^3/uL (130-450)
[2017-08-01 06:23] LABS: ALBUMIN 4.5 g/dL (3.2-5.5); ALBUMIN/GLOBULIN RATIO 1.5 (1.0-2.2); BILIRUBIN,TOTAL 0.7 mg/dL (0.2-1.0); CALCIUM 9.2 mg/dL (8.5-10.3); CREATININE 0.8 mg/dL (0.6-1.2); PHOSPHORUS 2.5 mg/dL (2.5-4.6); TOTAL PROTEIN 7.5 g/dL (6.7-8.2)
[2017-08-01 06:24] LABS: PT - PROTHROMBIN TIME 11.5 secs (9.9-12.6)
[2017-08-01 07:14] LABS: PLATELET ESTIMATE, MANUAL DECREASED (<130,000) (NORMAL)
[2017-08-01] MEDS: FAMOTIDINE 20 MG TABLET PO SCH (08:20)
[2017-08-01] MEDS: POLYETHYLENE GLYCOL 3350 17 GM PACKET PO SCH (08:20)
[2017-08-01] MEDS: LISINOPRIL 5 MG TABLET PO SCH (08:20)
[2017-08-01] MEDS: PREGABALIN 25 MG CAPSULE PO SCH ×2 (08:20→20:36)
[2017-08-01] MEDS ORDERED: DEXAMETHASONE 4 MG/ML VIAL IVP SCH (09:00)
[2017-08-01] MEDS: DEXAMETHASONE 40 MG in SODIUM CHLORIDE 0.9% 50 ML IVP SCH (09:13)
--- NOTE | 2017-08-01 20:33 | PROVIDER PROGRESS NOTE ---
Subjective - Prog Note Date Prog Note Date: 08/01/17 Prog Note Time: 16:00 - Subjective Pt reports feeling: Improved (Pt says his urine is no longer blood tinged, feels a little better today) Current Medications - Current Medications Current Medications: Acetaminophen, dexamethasone,Famotidine, lisinopril, ondansetron, oxycodone, Polyethylene glycol, Lyrica,Compazine, sodium chloride, Ambien Objective - Vital Signs/Intake & Output Reviewed Vital Signs: Yes Vital Signs: Vital Signs x48h Temp Pulse Resp BP Pulse Ox 08/01/17 15:45 36.7 C 93 17 137/81 H 97 Intake & Output: Intake & Output 07/29/17 07/30/17 07/31/17 08/01/17 23:59 23:59 23:59 23:59 Intake Total 1850.000 Balance 1850.000 - Objective General Appearance: positive: No acute distress, Alert Eyes Bilateral: positive: Normal inspection, PERRL, EOMI, No lid inflammation, Conjunctivae nml, No scleral icterus ENT: positive: ENT inspection nml, Pharynx nml, No signs of dehydration Neck: positive: Nml inspection, Thyroid nml, No JVD, Trachea midline. negative : Thyromegaly Respiratory: positive: Chest non-tender, No respiratory distress, Breath sounds nml. negative: Wheezes, Rales, Rhonchi Cardiovascular: positive: Regular rate & rhythm, No murmur, No gallop Abdomen: positive: Non-tender, No organomegaly, Nml bowel sounds, No distention. negative: Guarding, Rebound Back: positive: Nml inspection. negative: CVA tenderness (R), CVA tenderness (L ) Skin: positive: Color nml, Warm, Dry, Embolic lesions Extremities: positive: Non-tender, Full ROM, Nml appearance, No pedal edema Neurologic/Psychiatric: positive: Oriented x3, CN's nml (2-12), Motor nml, Sensation nml, Mood/affect nml - Lab Results Fish Bones: 08/01/17 05:56 08/01/17 05:56 Other Labs: Lab Results x24hrs 08/01/17 08/01/17 08/01/17 Range/Units 05:56 05:56 05:56 WBC (4.8-10.8) x10^3/uL RBC (4.70-6.10) 10^6/uL Hgb (14.0-18.0) g/dL Hct (42.0-52.0) % MCV (80.0-94.0) fL MCH (27.0-31.0) pg MCHC (32.0-36.0) g/dL RDW (12.0-15.0) % Plt Count (130-450) 10^3/uL MPV (7.4-11.4) fL Neut # (Auto) (1.5-6.6) 10^3/uL Lymph # (Auto) (1.5-3.5) 10^3/uL [place] # (Auto) (0.0-1.0) 10^3/uL Eos # (Auto) (0.0-0.7) 10^3/uL Baso # (Auto) (0.0-0.1) 10^3/uL Absolute Nucleated RBC x10^3/uL Nucleated RBC % /100WBC Manual Slide Review Platelet Estimate (NORMAL) PT (9.9-12.6) secs INR (0.8-1.2) Sodium 134 L (135-145) mmol/L Potassium 4.4 (3.5-5.0) mmol/L Chloride 103 (101-111) mmol/L Carbon Dioxide 24 (21-32) mmol/L Anion Gap 7.0 (6-13) BUN 16 (6-20) mg/dL Creatinine 0.8 (0.6-1.2) mg/dL Estimated GFR (MDRD) 111 (>89) Glucose 160 H (70-100) mg/dL Calcium 9.2 (8.5-10.3) mg/dL Phosphorus 2.5 (2.5-4.6) mg/dL Magnesium 2.0 (1.7-2.8) mg/dL Total Bilirubin 0.7 (0.2-1.0) mg/dL AST 51 H (10-42) IU/L ALT 72 H (10-60) IU/L Alkaline Phosphatase 62 (42-121) IU/L Total Protein 7.5 (6.7-8.2) g/dL Albumin 4.5 (3.2-5.5) g/dL Globulin 3.0 (2.1-4.2) g/dL Albumin/Globulin Ratio 1.5 (1.0-2.2) TSH 0.74 (0.34-5.60) uIU/mL Blood Type Recheck B POSITIVE 08/01/17 08/01/17 Range/Units 05:56 05:56 WBC 6.7 (4.8-10.8) x10^3/uL RBC 5.34 (4.70-6.10) 10^6/uL Hgb 14.8 (14.0-18.0) g/dL Hct 43.0 (42.0-52.0) % MCV 80.6 (80.0-94.0) fL MCH 27.7 (27.0-31.0) pg MCHC 34.4 (32.0-36.0) g/dL RDW 13.1 (12.0-15.0) % Plt Count 3 L* (130-450) 10^3/uL MPV 12.6 H (7.4-11.4) fL Neut # (Auto) 6.1 (1.5-6.6) 10^3/uL Lymph # (Auto) 0.5 L (1.5-3.5) 10^3/uL [place] # (Auto) 0.1 (0.0-1.0) 10^3/uL Eos # (Auto) 0.0 (0.0-0.7) 10^3/uL Baso # (Auto) 0.0 (0.0-0.1) 10^3/uL Absolute Nucleated RBC 0.00 x10^3/uL Nucleated RBC % 0.0 /100WBC Manual Slide Review Indicated Platelet Estimate DECREASED (<130,000) (NORMAL) PT 11.5 (9.9-12.6) secs INR 1.0 (0.8-1.2) Sodium (135-145) mmol/L Potassium (3.5-5.0) mmol/L Chloride (101-111) mmol/L Carbon Dioxide (21-32) mmol/L Anion Gap (6-13) BUN (6-20) mg/dL Creatinine (0.6-1.2) mg/dL Estimated GFR (MDRD) (>89) Glucose (70-100) mg/dL Calcium (8.5-10.3) mg/dL Phosphorus (2.5-4.6) mg/dL Magnesium (1.7-2.8) mg/dL Total Bilirubin (0.2-1.0) mg/dL AST (10-42) IU/L ALT (10-60) IU/L Alkaline Phosphatase (42-121) IU/L Total Protein (6.7-8.2) g/dL Albumin (3.2-5.5) g/dL Globulin (2.1-4.2) g/dL Albumin/Globulin Ratio (1.0-2.2) TSH (0.34-5.60) uIU/mL Blood Type Recheck ABX Reporting Has patient been on IV antibiotics over the past 48 hours?: No Assessment/Plan - Problem List (1) Acute ITP Impression: Unknown etiology, possibly a viral syndrome as the patient has elevated transaminases however his liver functions are well within normal limits. The patient denies any history of any other viral syndrome symptoms. The patient is currently receiving dexamethasone 40 mg daily for four days; Approximately 2/3 of patients respond to this treatment. If the Patient does not respond we will transfer him. (2) Hematuria Impression: The patient notes that the hematuria he has been experiencing is showing improvement today.This is almost certainly related to the ITP, I expect this to improve as the patient's platelet count rises. Qualifiers: Hematuria type: gross Qualified Code(s): R31.0 - Gross hematuria (3) Hyponatremia Impression: Correcting, sodium level Is 134 today. (4) Transaminitis Impression: Mild, and as HIV and hepatitis infection are risk factors for thrombocytopenia we have sent out panels for testing and are awaiting the results.The patient's liver function appears to be well within normal limits. Await results of testing panels and will continue to monitor transaminases.
[2017-08-02 06:11] LABS: INR 1.1 (0.8-1.2); PT - PROTHROMBIN TIME 11.9 secs (9.9-12.6)
[2017-08-02 06:12] LABS: BASOPHILS % (AUTO) 0.2 %; LYMPHOCYTES # (AUTO) 0.8 10^3/uL (1.5-3.5); LYMPHOCYTES % (AUTO) 5.6 %; MEAN CORPUSCULAR HEMOGLOBIN 27.8 pg (27.0-31.0); MEAN CORPUSCULAR HGB CONC 33.8 g/dL (32.0-36.0); MEAN CORPUSCULAR VOLUME 82.2 fL (80.0-94.0); MEAN PLATELET VOLUME 11.5 fL (7.4-11.4); MONOCYTES % (AUTO) 6.6 %; NEUTROPHILS % (AUTO) 87.6 %; RED BLOOD COUNT 5.06 10^6/uL (4.70-6.10); RED CELL DISTRIBUTION WIDTH 13.3 % (12.0-15.0); WHITE BLOOD COUNT 14.8 x10^3/uL (4.8-10.8)
[2017-08-02 06:15] LABS: PLT - PLATELET COUNT 3 10^3/uL (130-450)
[2017-08-02 06:21] LABS: ALBUMIN 4.1 g/dL (3.2-5.5); ALBUMIN/GLOBULIN RATIO 1.5 (1.0-2.2); BILIRUBIN,TOTAL 0.6 mg/dL (0.2-1.0); CALCIUM 8.8 mg/dL (8.5-10.3); CREATININE 0.8 mg/dL (0.6-1.2); MAGNESIUM 2.3 mg/dL (1.7-2.8); PHOSPHORUS 3.1 mg/dL (2.5-4.6); TOTAL PROTEIN 6.8 g/dL (6.7-8.2)
[2017-08-02] MEDS: SODIUM CHLORIDE FLUSH 0.9% 10 ML SYRINGE IVP SCH ×2 (06:42→08:29)
[2017-08-02 08:03] VITALS: BP 127/77
[2017-08-02] MEDS: PREGABALIN 25 MG CAPSULE PO SCH (08:28)
[2017-08-02] MEDS: FAMOTIDINE 20 MG TABLET PO SCH (08:29)
[2017-08-02] MEDS: LISINOPRIL 5 MG TABLET PO SCH (08:29)
[2017-08-02] MEDS: POLYETHYLENE GLYCOL 3350 17 GM PACKET PO SCH (08:29)
[2017-08-02] MEDS: DEXAMETHASONE 40 MG in SODIUM CHLORIDE 0.9% 50 ML IVP SCH (09:22)
[2017-08-02] MEDS: SODIUM CHLORIDE FLUSH 0.9% 10 ML SYRINGE IVP PRN (09:23)
--- NOTE | 2017-08-02 10:27 | Discharge Plan ---
Discharge Plan Disposition: 02 Transfer Acute Care Hosp Condition: Serious Diet: Regular Activity Restrictions: No shaving Shower Restrictions: No Driving Restrictions: No Weight Bearing: Full Weight No Smoking: If you smoke, Please STOP! Call for help. Follow-up with: Irene Brown PA-C [Primary Care Provider] -
--- NOTE | 2017-08-02 10:34 | DISCHARGE SUMMARY ---
Discharge Summary Admit Date: 07/31/17 Discharge Date: 08/02/17 Discharging Provider: Lilian Shell DO Primary Care Provider: Irene Brown Code Status: Attempt Resuscitation Condition at Discharge: Serious Discharge Disposition: 02 Transfer Acute Care Hosp Discharge Facility Name: [facility] - DIAGNOSES Admission Diagnoses: 1. Idiopathic thrombocytopenia 2. Hematuria 3. Transaminitis 4. Hyponatremia Discharge Diagnoses with Status of Each Condition: 1. Idiopathic thrombocytopenia -Unfortunately it seems that the patient is refractory to the high-dose steroids and will need to be transferred to a facility for IVIG and other treatments. Dr. Perdomo at [facility] has accepted the patient and he will be transferred this morning. 2. Hematuria- Resolving/resolved. Almost certainly related to the thrombocytopenia. 3. Transaminitis- Resolved, AST and ALT were only mildly elevated on admission. Awaiting results of HIV and hepatitis panel testing 4. Hyponatremia- Mild, correcting. Na 132 today. - HPI History of Present Illness: From Dr Baugh's H&P: Patient is a 32-year-old gentleman with a past medical history significant for hypertension, GERD and chronic back pain who presents to the emergency department with a chief complaint of hematuria. The patient states that he was in his normal state of health until just 4 days ago when he states that he was brushing his teeth before bed and noticed that he had some bleeding from his gums. He states that he went to sleep and then when he woke up the next morning he had dried blood on his teeth. He states that when he brushed his teeth again that morning he began bleeding a significant amount from his gums and the bleeding continued throughout the day. The patient states that due to this bleeding he decided to go see his dentist who prescribed him an antibiotic and some mouthwash. He states later in the day the dentist also cleaned his teeth. He states that after the teeth cleaning he had even more bleeding from his gums which was slow but continued throughout the next few days. He states that the following morning he began noticing small red dots over his legs arms and entire body. He went to see his primary care physician at that time and was thought to have had a reaction to his antibiotic Keflex therefore his antibiotic was changed. The patient states that the following evening he began to notice that he was having right flank pain. He states he did not make much of it because he has chronic back pain and thought it was similar pain to what he has had before. The patient states that the following morning which was this morning when he woke up he had hematuria. He states that initially his urine was just dark but then became bright red blood. At this point he became concerned and he went in to see his primary care physician once again. The patient's primary care physician thought the patient may be having a kidney stone and ordered a CT scan and did a urine analysis. Along with this she are also ordered some routine lab work. He was prescribed prednisone by his PCP and sent home. Of note the patient states that he bumped his left upper thigh against a door earlier in the week and noticed a large bruise over his thigh which is abnormal for him as he has had small bumps like that before but never bruised so much. He also states that this morning he noticed a bruise on his abdomen which was also unusual. The patient states that after seeing his primary care physician he went to work and later in the evening he got a phone call saying that he needed to go to the emergency department [facility]. It appears from the PCPs notes that the patient had a platelet count of 3 and this is why he was told to come to the emergency department. The patient denies any recent illnesses, headache, blurred vision, runny nose, sore throat, nasal congestion, difficulty swallowing, fever, chills, chest pain , orthopnea, PND, increased lower extremity swelling, cough, shortness of air, abdominal pain, nausea, vomiting, diarrhea, constipation, dysuria, increased urinary frequency, joint pain, joint swelling, muscle aches, back pain, neck stiffness, recent unintentional weight loss, generalized weakness, lightheadedness, hair loss, changes in his appetite, night sweats or any focal neurologic deficits. On presentation to the emergency department the patient was afebrile and slightly hypertensive but otherwise appeared to be in no acute distress and stable. The patient did have visible petechiae over his entire body. The patient was not having any active bleeding from his gums or his mouth. The patient underwent routine lab work which revealed a platelet count of 7 with no other abnormalities on the CBC other than a mild lymphopenia. The patient's blood chemistry revealed a mild hyponatremia and mildly elevated LFTs with AST of 51 and ALT of 71. The patient's urinalysis revealed large occult blood with positive nitrite, trace leukocyte esterase and large RBCs and greater than 25 WBCs with few bacteria. Given the severely low platelets and ongoing bleeding the emergency room physician was very concerned for possible ITP and called the heading saw operator reading intervention teacher at [facility] in [place]. He spoke with oncologist Dr. Barksdale and went over the case. Dr. Barksdale felt that the patient could remain at a [facility] as there was no need for access to platelets or IVIG at this time. He felt the best treatment for him initially would be dexamethasone 40 mg daily for 4 days and that he should be called back if the platelets did not improve in the next 3 days. The patient was admitted to the medical [facility] after receiving a dose of IV dexamethasone in the emergency department. - HOSPITAL COURSE Hospital Course: The patient was admitted to medical bed and placed on dexamethasone 40 mg daily. His platelet count was checked daily as well. Unfortunately his platelet count dropped from 7,000-3,000 and remained there for the next [address] Barksdale was again consulted and suggested that the patient should be transferred to a facility that has IVIG and a heading saw operator. [facility] was contacted and Dr Perdomo accepted the patient. - ALLERGIES Allergies/Adverse Reactions: Allergies Allergy/AdvReac Type Severity Reaction Status Date / Time cephalexin AdvReac Rash Verified 07/31/17 21:10 - MEDICATIONS Home Medications: Ambulatory Orders Medication Instructions Recorded Confirmed Diclofenac Sodium Dr [Voltaren] 75 mg PO BID 08/01/17 08/01/17 Lisinopril 10 mg PO DAILY 08/01/17 08/01/17 Pregabalin [Lyrica] 50 mg PO BID 08/01/17 08/01/17 oxyCODONE/ACET 5/325 [Percocet 5 1 each PO Q4-6H PRN 08/01/17 08/01/17 mg/325 mg] predniSONE [Deltasone] 10 - 40 mg PO .14DAYTAPER 08/01/17 08/01/17 Famotidine [Pepcid] 20 mg PO DAILY tablet 08/02/17 Polyethylene Glycol 3350 [Miralax] 17 gm PO DAILY packet 08/02/17 Pregabalin [Lyrica] 50 mg PO BID capsule 08/02/17 Zolpidem [Ambien] 5 mg PO QPM PRN tablet 08/02/17 oxyCODONE [Roxicodone] 5 mg PO Q4HR PRN tablet 08/02/17 oxyCODONE [Roxicodone] 10 mg PO Q4HR PRN tablet 08/02/17 - PHYSICAL EXAM AT DISCHARGE General Appearance: positive: No acute distress, Alert Eyes Bilateral: positive: Normal inspection, PERRL, EOMI, No lid inflammation, Conjunctivae nml, No scleral icterus ENT: positive: ENT inspection nml, Pharynx nml, No signs of dehydration Neck: positive: Nml inspection, Thyroid nml, No JVD, Trachea midline. negative : Thyromegaly Respiratory: positive: Chest non-tender, No respiratory distress, Breath sounds nml. negative: Wheezes, Rales, Rhonchi Cardiovascular: positive: Regular rate & rhythm, No murmur, No gallop Peripheral Pulses: positive: 2+ Abdomen: positive: Non-tender, No organomegaly, Nml bowel sounds, No distention. negative: Guarding, Rebound Back: positive: Nml inspection. negative: CVA tenderness (R), CVA tenderness (L ) Skin: positive: Color nml, No rash, Warm, Dry, Embolic lesions. negative: Cyanosis Extremities: positive: Non-tender, Full ROM, Nml appearance, No pedal edema Neurologic/Psychiatric: positive: Oriented x3, CN's nml (2-12), Motor nml, Sensation nml, Mood/affect nml - LABS Result Diagrams: 08/02/17 05:45 08/02/17 05:45 - FOLLOW UP Follow Up: Follow-up with your primary care physician following discharge from [facility]. - TIME SPENT Time Spent in Discharge (Minutes): 40
[2017-08-02 15:01] LABS: HEPATITIS A IGM NON-REACTIVE (NON-REACTIVE); HEPATITIS B CORE ANTIBODY IGM NON-REACTIVE (NON-REACTIVE); HEPATITIS B SURFACE ANTIGEN NON-REACTIVE (NON-REACTIVE); HEPATITIS C ANTIBODY NON-REACTIVE (NON-REACTIVE)
[2017-08-02 15:15] LABS: HIV AG/AB 4TH GEN NON-REACTIVE (NON-REACTIVE)
[2017-08-03 15:23] LABS: ANA SCREEN NEGATIVE (NEGATIVE)
== END 2017-08-02 13:25 | disposition short-term general hospital (02) | DRG 813 ==
LOC: ED 20:57 → MS2 22:36
PROVIDERS: ADMIT Internal Medicine; ATTEND Hospitalist
DX: D69.3 Immune thrombocytopenic purpura (principal); E87.1 Hypo-osmolality and hyponatremia; R31.0 Gross hematuria; E86.0 Dehydration; I10 Essential (primary) hypertension; M54.9 Dorsalgia, unspecified; G89.29 Other chronic pain; Z87.891 Personal history of nicotine dependence; Z79.1 Long term (current) use of non-steroidal anti-inflammatories (NSAID); Z79.899 Other long term (current) drug therapy; I77.6 Arteritis, unspecified
CPT/HCPCS: 36415; 80053; 80074; 81001; 81003; 83520; 83690; 83735; 84100; 84443; 85025; 85610; 86021; 86038; 86060; 86160; 86850; 86900; 86901; 87086; 87389; 96374; 99283; 99284

== ENCOUNTER 2017-08-01 08:00 | Outpatient (CLI) | payer BC | END 2017-08-01 08:01 | disposition home or self-care (01) | LOC: LAB.WCP 08:00 | PROVIDERS: ATTEND Family Medicine | DX: R31.9 Hematuria, unspecified (principal) | CPT/HCPCS: 87086 ==

== ENCOUNTER 2017-08-01 08:00 | Outpatient (CLI) | payer BC | END 2017-08-01 08:01 | disposition home or self-care (01) | LOC: LAB 08:00 | PROVIDERS: ATTEND Family Medicine | DX: R31.9 Hematuria, unspecified (principal) ==

== ENCOUNTER 2017-08-02 13:23 | Outpatient (CLI) | payer BC | END 2017-08-02 13:24 | disposition short-term general hospital (02) | LOC: EMS 13:23 | PROVIDERS: ATTEND Surgery | DX: D69.6 Thrombocytopenia, unspecified (principal); R10.9 Unspecified abdominal pain; M54.9 Dorsalgia, unspecified | CPT/HCPCS: A0170; A0425; A0428 ==

== ENCOUNTER 2017-08-14 13:18 | Outpatient (CLI) | payer BC ==
[2017-08-14 19:20] LABS: BASOPHILS % (AUTO) 0.2 %; EOSINOPHILS % (AUTO) 0.2 %; HGB - HEMOGLOBIN 15.2 g/dL (14.0-18.0); LYMPHOCYTES # (AUTO) 0.6 10^3/uL (1.5-3.5); LYMPHOCYTES % (AUTO) 5.2 %; MEAN CORPUSCULAR HEMOGLOBIN 28.8 pg (27.0-31.0); MEAN CORPUSCULAR HGB CONC 33.3 g/dL (32.0-36.0); MEAN CORPUSCULAR VOLUME 86.3 fL (80.0-94.0); MEAN PLATELET VOLUME 9.5 fL (7.4-11.4); MONOCYTES # (AUTO) 0.3 10^3/uL (0.0-1.0); MONOCYTES % (AUTO) 2.5 %; NEUTROPHILS # (AUTO) 11.4 10^3/uL (1.5-6.6); NEUTROPHILS % (AUTO) 91.9 %; PLT - PLATELET COUNT 138 10^3/uL (130-450); RED BLOOD COUNT 5.29 10^6/uL (4.70-6.10); RED CELL DISTRIBUTION WIDTH 14.1 % (12.0-15.0); WHITE BLOOD COUNT 12.4 x10^3/uL (4.8-10.8)
[2017-08-14 19:34] LABS: ALBUMIN 3.8 g/dL (3.2-5.5); ALBUMIN/GLOBULIN RATIO 0.9 (1.0-2.2); BILIRUBIN,TOTAL 0.5 mg/dL (0.2-1.0); CALCIUM 9.2 mg/dL (8.5-10.3); CREATININE 0.9 mg/dL (0.6-1.2); TOTAL PROTEIN 7.9 g/dL (6.7-8.2)
== END 2017-08-14 13:19 | disposition home or self-care (01) ==
LOC: LAB.WCP 13:18
PROVIDERS: ATTEND Family Medicine
DX: D69.3 Immune thrombocytopenic purpura (principal)
CPT/HCPCS: 36415; 80053; 85025

== ENCOUNTER 2017-09-01 08:52 | Outpatient (CLI) | payer BC ==
[2017-09-01 12:20] LABS: BASOPHILS % (AUTO) 0.3 %; EOSINOPHILS # (AUTO) 0.1 10^3/uL (0.0-0.7); EOSINOPHILS % (AUTO) 1.2 %; HGB - HEMOGLOBIN 14.6 g/dL (14.0-18.0); LYMPHOCYTES # (AUTO) 1.2 10^3/uL (1.5-3.5); LYMPHOCYTES % (AUTO) 18.1 %; MEAN CORPUSCULAR HGB CONC 33.2 g/dL (32.0-36.0); MEAN CORPUSCULAR VOLUME 87.3 fL (80.0-94.0); MEAN PLATELET VOLUME 8.7 fL (7.4-11.4); MONOCYTES # (AUTO) 0.5 10^3/uL (0.0-1.0); MONOCYTES % (AUTO) 7.3 %; NEUTROPHILS # (AUTO) 4.8 10^3/uL (1.5-6.6); NEUTROPHILS % (AUTO) 73.1 %; PLT - PLATELET COUNT 137 10^3/uL (130-450); RED BLOOD COUNT 5.04 10^6/uL (4.70-6.10); RED CELL DISTRIBUTION WIDTH 14.2 % (12.0-15.0); WHITE BLOOD COUNT 6.6 x10^3/uL (4.8-10.8)
== END 2017-09-01 08:53 | disposition home or self-care (01) ==
LOC: LAB.WCP 08:52
PROVIDERS: ATTEND Family Medicine
DX: D69.3 Immune thrombocytopenic purpura (principal)
CPT/HCPCS: 36415; 85025

== ENCOUNTER 2017-09-13 08:00 | Outpatient (CLI) | payer BC ==
[2017-09-13 12:42] LABS: BASOPHILS % (AUTO) 0.4 %; EOSINOPHILS # (AUTO) 0.1 10^3/uL (0.0-0.7); EOSINOPHILS % (AUTO) 0.8 %; LYMPHOCYTES # (AUTO) 1.2 10^3/uL (1.5-3.5); MEAN CORPUSCULAR HGB CONC 33.8 g/dL (32.0-36.0); MEAN CORPUSCULAR VOLUME 85.7 fL (80.0-94.0); MEAN PLATELET VOLUME 9.1 fL (7.4-11.4); MONOCYTES # (AUTO) 0.4 10^3/uL (0.0-1.0); MONOCYTES % (AUTO) 5.9 %; NEUTROPHILS # (AUTO) 5.2 10^3/uL (1.5-6.6); NEUTROPHILS % (AUTO) 74.9 %; PLT - PLATELET COUNT 157 10^3/uL (130-450); RED BLOOD COUNT 5.18 10^6/uL (4.70-6.10); RED CELL DISTRIBUTION WIDTH 13.8 % (12.0-15.0); WHITE BLOOD COUNT 6.9 x10^3/uL (4.8-10.8)
== END 2017-09-13 08:01 | disposition home or self-care (01) ==
LOC: LAB.WCP 08:00
PROVIDERS: ATTEND Family Medicine
DX: D69.3 Immune thrombocytopenic purpura (principal)
CPT/HCPCS: 36415; 85025

== ENCOUNTER 2017-09-20 20:39 | Outpatient (CLI) | payer BC ==
[2017-09-20 19:09] LABS: BASOPHILS # (AUTO) 0.1 10^3/uL (0.0-0.1); BASOPHILS % (AUTO) 0.5 %; EOSINOPHILS % (AUTO) 0.2 %; HGB - HEMOGLOBIN 15.3 g/dL (14.0-18.0); LYMPHOCYTES # (AUTO) 0.5 10^3/uL (1.5-3.5); MEAN CORPUSCULAR HGB CONC 33.3 g/dL (32.0-36.0); MEAN CORPUSCULAR VOLUME 87.2 fL (80.0-94.0); MEAN PLATELET VOLUME 9.2 fL (7.4-11.4); MONOCYTES # (AUTO) 0.4 10^3/uL (0.0-1.0); MONOCYTES % (AUTO) 3.1 %; NEUTROPHILS # (AUTO) 12.6 10^3/uL (1.5-6.6); NEUTROPHILS % (AUTO) 92.2 %; PLT - PLATELET COUNT 146 10^3/uL (130-450); RED BLOOD COUNT 5.28 10^6/uL (4.70-6.10); WHITE BLOOD COUNT 13.7 x10^3/uL (4.8-10.8)
== END 2017-09-20 20:40 | disposition home or self-care (01) ==
LOC: LAB.WCP 20:39
PROVIDERS: ATTEND Family Medicine
DX: D69.3 Immune thrombocytopenic purpura (principal)
CPT/HCPCS: 36415; 85025

== ENCOUNTER 2017-10-11 08:03 | Outpatient (CLI) | payer BC ==
[2017-10-11 12:06] LABS: BASOPHILS % (AUTO) 0.3 %; EOSINOPHILS % (AUTO) 0.5 %; HGB - HEMOGLOBIN 14.9 g/dL (14.0-18.0); LYMPHOCYTES % (AUTO) 18.3 %; MEAN CORPUSCULAR HGB CONC 34.3 g/dL (32.0-36.0); MEAN CORPUSCULAR VOLUME 84.6 fL (80.0-94.0); MEAN PLATELET VOLUME 8.6 fL (7.4-11.4); NEUTROPHILS % (AUTO) 74.9 %; PLT - PLATELET COUNT 186 10^3/uL (130-450); RED BLOOD COUNT 5.14 10^6/uL (4.70-6.10); WHITE BLOOD COUNT 7.4 x10^3/uL (4.8-10.8)
[2017-10-11 12:36] LABS: ABNORMAL LYMPHS % (MANUAL) 0 %
[2017-10-11 12:41] LABS: BAND NEUTROPHILS % (MANUAL) 5 %; BASOPHILS # (MANUAL) 0.1 10^3/uL (0-0.1); BASOPHILS % (MANUAL) 1 %; DIFFERENTIAL COMMENT MANUAL DIFFERENTIAL; LYMPHOCYTES # (MANUAL) 1.6 10^3/uL (1.5-3.5); LYMPHOCYTES % (MANUAL) 22 %; MONOCYTES # (MANUAL) 0.1 10^3/uL (0.0-1.0); MYELOCYTES % (MANUAL) 1 %; NEUTROPHILS # (MANUAL) 5.5 10^3/uL (1.5-6.6); NEUTROPHILS % (MANUAL) 69 %; PLATELET ESTIMATE, MANUAL NORMAL (130-450,000) (NORMAL); PLATELET MORPHOLOGY NORMAL APPEARANCE (NORMAL); RBC MORPHOLOGY (MULTIPLE) NORMAL APPEARANCE (NORMAL)
== END 2017-10-11 08:04 | disposition home or self-care (01) ==
LOC: LAB.WCP 08:03
PROVIDERS: ATTEND Family Medicine
DX: D69.3 Immune thrombocytopenic purpura (principal)
CPT/HCPCS: 36415; 85025

== ENCOUNTER 2017-11-08 07:42 | Outpatient (CLI) | payer BC ==
[2017-11-08 12:55] LABS: BASOPHILS % (AUTO) 0.5 %; EOSINOPHILS # (AUTO) 0.1 10^3/uL (0.0-0.7); EOSINOPHILS % (AUTO) 1.9 %; HGB - HEMOGLOBIN 15.2 g/dL (14.0-18.0); LYMPHOCYTES # (AUTO) 1.1 10^3/uL (1.5-3.5); LYMPHOCYTES % (AUTO) 17.8 %; MEAN CORPUSCULAR HEMOGLOBIN 28.6 pg (27.0-31.0); MEAN CORPUSCULAR HGB CONC 33.8 g/dL (32.0-36.0); MEAN CORPUSCULAR VOLUME 84.6 fL (80.0-94.0); MEAN PLATELET VOLUME 8.2 fL (7.4-11.4); MONOCYTES # (AUTO) 0.6 10^3/uL (0.0-1.0); MONOCYTES % (AUTO) 10.2 %; NEUTROPHILS # (AUTO) 4.4 10^3/uL (1.5-6.6); NEUTROPHILS % (AUTO) 69.6 %; PLT - PLATELET COUNT 217 10^3/uL (130-450); RED BLOOD COUNT 5.31 10^6/uL (4.70-6.10); RED CELL DISTRIBUTION WIDTH 14.2 % (12.0-15.0); WHITE BLOOD COUNT 6.4 x10^3/uL (4.8-10.8)
== END 2017-11-08 07:43 | disposition home or self-care (01) ==
LOC: LAB.WCP 07:42
PROVIDERS: ATTEND Family Medicine
DX: D69.3 Immune thrombocytopenic purpura (principal)
CPT/HCPCS: 36415; 85025

== ENCOUNTER 2018-11-19 08:00 | Outpatient (CLI) | payer BC ==
[2018-11-19 19:07] LABS: BASOPHILS % (AUTO) 0.6 %; EOSINOPHILS # (AUTO) 0.2 10^3/uL (0.0-0.7); EOSINOPHILS % (AUTO) 3.9 %; HGB - HEMOGLOBIN 14.2 g/dL (14.0-18.0); LYMPHOCYTES # (AUTO) 0.9 10^3/uL (1.5-3.5); LYMPHOCYTES % (AUTO) 16.9 %; MEAN CORPUSCULAR HEMOGLOBIN 28.9 pg (27.0-31.0); MEAN CORPUSCULAR HGB CONC 33.9 g/dL (32.0-36.0); MEAN CORPUSCULAR VOLUME 85.3 fL (80.0-94.0); MEAN PLATELET VOLUME 10.9 fL (7.4-11.4); MONOCYTES # (AUTO) 0.4 10^3/uL (0.0-1.0); MONOCYTES % (AUTO) 8.2 %; NEUTROPHILS # (AUTO) 3.8 10^3/uL (1.5-6.6); PLT - PLATELET COUNT 223 10^3/uL (130-450); RED BLOOD COUNT 4.91 10^6/uL (4.70-6.10); RED CELL DISTRIBUTION WIDTH 13.2 % (12.0-15.0); WHITE BLOOD COUNT 5.4 x10^3/uL (4.8-10.8)
[2018-11-19 19:44] LABS: ALBUMIN 4.3 g/dL (3.2-5.5); ALBUMIN/GLOBULIN RATIO 1.7 (1.0-2.2); BILIRUBIN,TOTAL 0.4 mg/dL (0.2-1.0); CREATININE 1.2 mg/dL (0.6-1.2); TOTAL PROTEIN 6.8 g/dL (6.7-8.2)
== END 2018-11-19 23:59 | disposition home or self-care (01) ==
LOC: LAB.WCP 08:00
PROVIDERS: ATTEND Physician Assistant Medical
DX: I10 Essential (primary) hypertension (principal); D69.3 Immune thrombocytopenic purpura
CPT/HCPCS: 36415; 80053; 85025

== ENCOUNTER 2020-05-27 08:23 | Outpatient (CLI) | payer BC, OTHER ==
--- NOTE | 2020-05-27 16:42 | XRAY Report ---
PROCEDURE: Shoulder 3 View RT INDICATIONS: RIGHT SHOULDER IMPINGEMENT SYNDROME TECHNIQUE: 3 views of the shoulder were acquired. COMPARISON: None. FINDINGS: Bones: No fractures or dislocations. No suspicious bony lesions. Visualized ribs appear intact. Soft tissues: No suspicious soft tissue calcifications. IMPRESSION: No trauma found. MR scanning would be necessary to more accurately assess for impingemen t syndrome etiology. Reviewed by: Cisco Mckeon MD on 05/27/2020 4:41 PM PDT Approved by: Cisco Mckeon MD on 05/27/2020 4:41 PM PDT Station ID: [id number]
--- NOTE | 2020-05-27 16:43 | XRAY Report ---
PROCEDURE: Lumbar Spine 2 View INDICATIONS: LUMBAR DISC DISORDER TECHNIQUE: 2 views of the lumbar spine were acquired. COMPARISON: 04/26/2017 MR LS-spine FINDINGS: Bones: 5 [id number] vertebrae are present. There is normal bony alignment. No vertebral body compression fractures. No suspicious bony lesions. Soft tissues: Overlying bowel gas pattern is normal. No suspicious soft tissue calcifications. IMPRESSION: There is a minimal degree of degenerative disc disease to the L5-S1 level where moderate such disc height reduction is present and facet osteoarthritis is also moderate at this level and L4 -5. Spinal and foraminal stenosis likely is associated but no subluxation is seen. Reviewed by: Cisco Mckeon MD on 05/27/2020 4:42 PM PDT Approved by: Cisco Mckeon MD on 05/27/2020 4:42 PM PDT Station ID: [id number]
== END 2020-05-27 23:59 | disposition home or self-care (01) ==
LOC: DI.WCP 08:23
PROVIDERS: ATTEND Physician Assistant Medical
DX: M51.86 Other intervertebral disc disorders, lumbar region (principal); M51.37 Other intervertebral disc degeneration, lumbosacral region; M47.817 Spondylosis without myelopathy or radiculopathy, lumbosacral region; M75.41 Impingement syndrome of right shoulder

== ENCOUNTER 2022-05-02 08:09 | Outpatient (CLI) | payer BC ==
[2022-05-02 13:11] LABS: ALBUMIN 4.2 g/dL (3.2-5.5); ALBUMIN/GLOBULIN RATIO 1.4 (1.0-2.2); ALKALINE PHOSPHATASE 55 IU/L (42-121); ALT ALANINE AMINOTRANSFERASE 56 IU/L (10-60); AST ASPARTATE AMINOTRANSFERASE 32 IU/L (10-42); BILIRUBIN,TOTAL 0.8 mg/dL (0.2-1.0); BUN - BLOOD UREA NITROGEN 22 mg/dL (6-20); CALCIUM 9.4 mg/dL (8.5-10.3); CARBON DIOXIDE - CO2 28 mmol/L (21-32); CHLORIDE 104 mmol/L (101-111); CHOL/HDL RATIO 7.4 (<5.0); CHOLESTEROL 265 mg/dL; CREATININE 0.9 mg/dL (0.6-1.2); GFR - MDRD 94 (>89); GLUCOSE 107 mg/dL (70-100); HDL CHOLESTEROL 36 mg/dL; LDL CHOLESTEROL,CALCULATED 177 mg/dL; LDL/HDL RATIO 4.9 (<3.6); POTASSIUM 4.5 mmol/L (3.5-5.0); SODIUM 137 mmol/L (135-145); TOTAL PROTEIN 7.2 g/dL (6.7-8.2); TRIGLYCERIDES 262 mg/dL; VLDL CHOLESTEROL 52 mg/dL
== END 2022-05-02 08:10 | disposition home or self-care (01) ==
LOC: LAB.N 08:09
PROVIDERS: ATTEND Physician Assistant Medical
DX: E78.5 Hyperlipidemia, unspecified (principal)
CPT/HCPCS: 36415; 80053; 80061; 83721

== ENCOUNTER 2023-03-06 08:08 | Outpatient (CLI) | payer BC, OTHER ==
[2023-03-06 12:35] LABS: EOSINOPHILS # (AUTO) 0.2 10^3/uL (0.0-0.7); HCT - HEMATOCRIT 45.7 % (42.0-52.0); HGB - HEMOGLOBIN 15.7 g/dL (14.0-18.0); LYMPHOCYTES % (AUTO) 23.8 %; MEAN CORPUSCULAR HEMOGLOBIN 28.4 pg (27.0-31.0); MEAN CORPUSCULAR HGB CONC 34.4 g/dL (32.0-36.0); MEAN CORPUSCULAR VOLUME 82.6 fL (80.0-94.0); MEAN PLATELET VOLUME 10.6 fL (7.4-11.4); MONOCYTES # (AUTO) 0.4 10^3/uL (0.0-1.0); MONOCYTES % (AUTO) 9.4 %; NEUTROPHILS # (AUTO) 2.4 10^3/uL (1.5-6.6); NEUTROPHILS % (AUTO) 60.3 %; PLT - PLATELET COUNT 223 10^3/uL (130-450); RED BLOOD COUNT 5.53 10^6/uL (4.70-6.10)
[2023-03-06 13:00] LABS: ALBUMIN 4.7 g/dL (3.2-5.5); ALKALINE PHOSPHATASE 65 IU/L (42-121); ALT ALANINE AMINOTRANSFERASE 90 IU/L (10-60); AST ASPARTATE AMINOTRANSFERASE 40 IU/L (10-42); BILIRUBIN,TOTAL 0.4 mg/dL (0.2-1.0); BUN - BLOOD UREA NITROGEN 21 mg/dL (6-20); CALCIUM 9.6 mg/dL (8.5-10.3); CARBON DIOXIDE - CO2 26 mmol/L (21-32); CHLORIDE 103 mmol/L (101-111); CHOL/HDL RATIO 8.9 (<5.0); CHOLESTEROL 285 mg/dL; CREATININE 1.1 mg/dL (0.6-1.3); GFR - MDRD 75 (>89); GLUCOSE 105 mg/dL (74-104); HDL CHOLESTEROL 32 mg/dL; LDL CHOLESTEROL,CALCULATED 177 mg/dL; LDL/HDL RATIO 5.5 (<3.6); POTASSIUM 4.5 mmol/L (3.5-4.5); SODIUM 135 mmol/L (135-145); TRIGLYCERIDES 381 mg/dL (48-352); VLDL CHOLESTEROL 76 mg/dL
[2023-03-06 13:04] LABS: THYROID STIMULATING HORMONE 2.41 uIU/mL (0.34-5.60)
== END 2023-03-06 08:09 | disposition home or self-care (01) ==
LOC: LAB.N 08:08
PROVIDERS: ATTEND Physician Assistant Medical
DX: Z00.00 Encounter for general adult medical examination without abnormal findings (principal)
CPT/HCPCS: 36415; 80053; 80061; 83721; 84443; 85025

== ENCOUNTER 2023-07-04 08:34 | Outpatient (CLI) | payer BC ==
[2023-07-04 12:26] LABS: ALBUMIN 4.4 g/dL (3.2-5.5); ALBUMIN/GLOBULIN RATIO 1.9 (1.0-2.2); ALKALINE PHOSPHATASE 62 IU/L (42-121); ALT ALANINE AMINOTRANSFERASE 54 IU/L (10-60); AST ASPARTATE AMINOTRANSFERASE 28 IU/L (10-42); BILIRUBIN,TOTAL 0.5 mg/dL (0.2-1.0); BUN - BLOOD UREA NITROGEN 19 mg/dL (6-20); CALCIUM 9.8 mg/dL (8.5-10.3); CARBON DIOXIDE - CO2 26 mmol/L (21-32); CHLORIDE 106 mmol/L (101-111); CHOL/HDL RATIO 7.4 (<5.0); CHOLESTEROL 265 mg/dL; CREATININE 0.9 mg/dL (0.6-1.3); GFR - MDRD 94 (>89); GLUCOSE 112 mg/dL (74-104); HDL CHOLESTEROL 36 mg/dL; LDL CHOLESTEROL,CALCULATED 151 mg/dL; LDL/HDL RATIO 4.2 (<3.6); POTASSIUM 4.7 mmol/L (3.5-4.5); SODIUM 137 mmol/L (135-145); TOTAL PROTEIN 6.7 g/dL (6.4-8.9); TRIGLYCERIDES 391 mg/dL (48-352); VLDL CHOLESTEROL 78 mg/dL
== END 2023-07-04 08:35 | disposition home or self-care (01) ==
LOC: LAB.N 08:34
PROVIDERS: ATTEND Physician Assistant Medical
DX: E78.5 Hyperlipidemia, unspecified (principal)
CPT/HCPCS: 36415; 80053; 80061; 83721